=== PATIENT | female | born 1965 | race Caucasian/White ===

== ENCOUNTER 2022-01-05 13:41 | Outpatient (REF) | payer MEDICAID, SELFPAY ==
[2022-01-05 15:23] LABS: Alanine Aminotransferase 9 U/L (0-31); Albumin Level 3.7 g/dL (3.5-5.0); Alkaline Phosphatase 97 U/L (39-117); Aspartate Amino Transferase 12 U/L (5-31); Bilirubin Direct < 0.2 mg/dL (0.0-0.5); Bilirubin Total < 0.2 mg/dL (0.0-1.0); Total Protein 6.6 g/dL (6.5-8.0)
[2022-01-05 15:42] LABS: Syphilis Screen Nonreactive (Nonreactive)
[2022-01-05 15:48] LABS: Vitamin B12 243 pg/mL (200-900)
[2022-01-06 21:21] LABS: Lyme Abs Screen <0.90 index
== END 2022-01-05 13:42 | disposition home or self-care (01) ==
LOC: HO.LAB 13:41
PROVIDERS: PCP Internal Medicine; Visit Provider Psychiatry & Neurology Neurology
DX: F03.90 Unspecified dementia, unspecified severity, without behavioral disturbance, psychotic disturbance, mood disturbance, and anxiety (principal)
CPT/HCPCS: 36415; 80076; 82607; 86617; 86618; 86780